=== PATIENT | male | born 1960 | race American Indian/Alaskan Native ===

== ENCOUNTER 2018-07-06 08:13 | Outpatient (CLI) | payer MEDICARE ==
--- NOTE | 2018-07-06 09:34 | Ultrasound Report ---
ULTRASOUND TESTICULAR DOPPLER COMPLETE History: Noninflammatory disorders of testes. Technique: Trans-scrotal ultrasound with spectral doppler interrogation. Findings: The right testicle measures 4.3 x 3.0 x 3.0 cm. The left testicle measures 3.9 x 2.7 x 3.0 cm. No evidence for testicular mass, cyst or calcifications. Symmetric flow on color Doppler. Bilateral epididymal head cysts are identified measuring 6 mm on the right and 9 mm in the left. Large bilateral hydroceles are identified, left slightly larger than right. No evidence for varicocele. Spectral Doppler analysis demonstrates arterial flow to both testes. No evidence for torsion. IMPRESSION: Large bilateral hydroceles. These are simple in appearance with no obvious debris or septation. Bilateral epididymal head cysts.
== END 2018-07-06 08:14 | disposition home or self-care (01) ==
LOC: US 08:13
PROVIDERS: ATTEND Urology
DX: N50.3 Cyst of epididymis (principal); N43.3 Hydrocele, unspecified
CPT/HCPCS: 93975

== ENCOUNTER 2018-08-08 12:10 | Day surgery (SDC) | payer MEDICARE ==
[2018-08-08] MEDS ORDERED: LACTATED RINGERS 1,000 ML IV SCH (13:00)
--- NOTE | 2018-08-08 13:04 | Anesthesia Consultation ---
Anesthesia Consult and Med Hx Date of service: 08/08/18 - Airway Anesthetic Teeth Evaluation: Good ROM Head & Neck: Adequate Mental/Hyoid Distance: Adequate Mallampati Class: Class II Intubation Access Assessment: Good - Pulmonary Exam CTA: Yes - Cardiac Exam Cardiac Exam: RRR - Pre-Operative Health Status ASA Pre-Surgery Classification: ASA2 Proposed Anesthetic Plan: General - Pulmonary Hx Smoking: No Hx Sleep Apnea: No (CINDY PRE SCREEN HIGH RISK.) - Cardiovascular System Hx Hypertension: Yes (X 3 YRS) - Central Nervous System Hx Seizures: Yes (ON DAILY MEDS,LAST ONE SEVERAL YRS AGO) CVA: Yes (2014- AFTER BRAIN SURGERY- NO DEFICITS) - Other Systems Hx Cancer: No
--- NOTE | 2018-08-08 13:05 | Anesthesia Day of Surgery ---
Anesthesia Day of Surgery - Day of Surgery Patient Examined: Yes Patient H&P Reviewed: Yes Patient is NPO: Yes
[2018-08-08] MEDS ORDERED: LACTATED RINGERS 1,000 ML ONE (13:25)
[2018-08-08] MEDS ORDERED: DIPRIVAN 10 MG/ML IV ONE (13:25)
[2018-08-08] MEDS ORDERED: SUBLIMAZE ONE (13:25)
[2018-08-08] MEDS ORDERED: NEO SYNEPHRINE/NS Syringe(OR USE) IV ONE (13:30)
[2018-08-08] MEDS ORDERED: XYLOCAINE CARDIAC IV ONE (13:40)
[2018-08-08] MEDS ORDERED: DECADRON ONE (13:40)
[2018-08-08] MEDS ORDERED: ZOFRAN ONE (13:40)
[2018-08-08] MEDS ORDERED: ANCEF/STERILE WATER 2 GM/20 ML IV NR (14:00)
[2018-08-08] MEDS ORDERED: NACL 0.9% IR ONE (15:00)
--- NOTE | 2018-08-08 15:34 | Short Stay Summary ---
Short Stay Documentation Date of service: 08/08/18 - History H&P: obtained from office - Allergies and Medications Current Medications: Allergies No Known Allergies Allergy (Verified 08/02/18 10:06) Home Medications Medication Instructions Recorded Confirmed Last Taken Type Aspirin 325 mg PO QDAY 08/02/18 08/08/18 07/03/18 09:00 History Irbesartan [Avapro] 75 mg PO DAILY 08/02/18 08/08/18 08/08/18 11:15 History amLODIPine [Norvasc] 10 mg PO DAILY 08/02/18 08/08/18 08/08/18 11:15 History levETIRAcetam [Keppra TAB] 1,000 mg PO BID 08/02/18 08/08/18 08/08/18 11:15 History Active Medications Cefazolin Sodium (Ancef/Sterile Water 2 Gm/20 Ml) 2 gm IV PREOP NR Stop: 08/08/18 23:59 Lactated Ringer's (Lactated Ringers) 1,000 mls @ 75 mls/hr IV DIRECT DAFNE Last Admin: 08/08/18 13:25 Dose: 75 mls/hr Documented by: - Brief post op/procedure progress note Date of procedure: 08/08/18 Pre-op diagnosis: bilat hydrocele Post-op diagnosis: same Procedure: bilat hydrocelectomy & scrotaplasty Anesthesia: SHYLA Surgeon: HERNANDO VILLALOBOS Estimated blood loss: minimal Pathology: list (scrotal skin) Condition: stable - Hospital course Hospital course: norco - Disposition Condition at discharge: Stable Disposition: DC-01 TO HOME OR SELFCARE Short Stay Discharge Plan Follow up with: VIDAL IBARRA MD [Primary Care Provider] - 7 Days
[2018-08-08] MEDS ORDERED: TORADOL ONE (15:41)
[2018-08-08] MEDS ORDERED: DILAUDID ONE (15:42)
--- NOTE | 2018-08-08 16:03 | Post Anesthesia Evaluation ---
- Post Anesthesia Evaluation Patient Participated: Yes Airway Patent: Yes Stable Respiratory Function: Yes Nausea/Vomiting: No Temp > 96.8F: Yes Pain Manageable: Yes Adequeate Hydration: No Block Receding Appropriately: Not Applicable Patient on Ventilator: No
[2018-08-08] MEDS ORDERED: NORCO 5/325 PO PRN (17:52)
[2018-08-08 19:06] VITALS: BP 125/78
--- NOTE | 2018-08-09 20:26 | Operative Report ---
PREOPERATIVE DIAGNOSIS: Bilateral hydroceles. POSTOPERATIVE DIAGNOSIS: Bilateral hydroceles. PROCEDURE: Bilateral hydrocelectomy, scrotoplasty with placement of Napavine drain. SURGEON: Pio Morgan MD ANESTHESIA: General. ESTIMATED BLOOD LOSS: Minimal. FLUIDS: Crystalloid. COMPLICATIONS: No complications. INDICATIONS: This patient is a 58-year-old gentleman seen in the office with a scrotal mass, no trauma. States it has been there for some time. Scrotal ultrasound revealed bilateral hydroceles, flu-like. Discussed the options. He agreed to proceed with surgical intervention. DESCRIPTION OF PROCEDURE: The patient was taken to the operative suite, placed in a supine position. After adequate general anesthesia, he was prepped and draped in a sterile fashion. The scrotal skin was marked in several areas to allow wedge resection for best cosmetic appearance. A transverse incision was made. Sharp dissection was taken down to the tunica vaginalis, which was opened on the left, which was larger than the right. Serosanguineous fluid was evacuated. Healthy testicle could be appreciated. Incision was also made on the right side with similar findings. The hydrocele sac was excised bilaterally. A running whipstitch on the left side using 2-0 chromic in a running fashion was performed and then a similar stitch on the right side using 2-0 chromic. Adequate hemostasis was achieved. Now, I was able to gauge the size of the scrotum and a large segment was excised. A wedge segment was excised and sent for routine pathologic evaluation. Adequate hemostasis was achieved. The Adri drain was brought out through a separate stab incision on the left side tied and the skin with 2-0 chromic in interrupted fashion. Dartos layer was closed using 2-0 chromic in a running fashion. The septum was incorporated into the suture. Skin was closed with 3-0 Vicryl in an interrupted fashion. Dressing was placed. Snug Coban dressing was also placed around the scrotum and base of the penis. The patient tolerated the procedure well and was extubated and taken to recovery room. He will go home on Bactrim and [place] and follow up in the office. JOB# [id number] RINA/NIKOLAI
== END 2018-08-08 17:42 | disposition home or self-care (01) ==
LOC: OR 12:10
PROVIDERS: ATTEND Urology
DX: N43.2 Other hydrocele (principal); I10 Essential (primary) hypertension; Z79.899 Other long term (current) drug therapy; Z79.82 Long term (current) use of aspirin; Z86.718 Personal history of other venous thrombosis and embolism; Z86.73 Personal history of transient ischemic attack (TIA), and cerebral infarction without residual deficits
CPT/HCPCS: 55041; 88302; 88305; J0690; J1100; J1170; J1885; J2001; J2370; J2405; J2704; J3010; J7120; 88304

== ENCOUNTER 2019-04-01 08:43 | Outpatient (CLI) | payer MEDICARE ==
--- NOTE | 2019-04-01 10:24 | Cat Scan Report ---
CT ABDOMEN AND PELVIS WITHOUT CONTRAST INDICATION / CLINICAL INFORMATION: MALIGNANT NEOPLASM OF PROSTATE. TECHNIQUE: Axial CT images were obtained through the abdomen and pelvis without IV contrast. All CT scans at [facility] location are performed using CT dose reduction for ALARA by means of automated exposure control. COMPARISON: None available. FINDINGS: LOWER CHEST: No significant abnormality. Small hiatal hernia is present. LIVER: No significant abnormality. GALLBLADDER: No significant abnormality. BILE DUCTS: No significant abnormality. PANCREAS: No significant abnormality. SPLEEN: No significant abnormality. ADRENALS: No significant abnormality. RIGHT KIDNEY and URETER: Two renal cyst are present measuring 8.0 cm and 5.6 cm. LEFT KIDNEY and URETER: A 3 cm left renal cyst is present. STOMACH and SMALL BOWEL: No significant abnormality. COLON: No significant abnormality. APPENDIX: No significant abnormality. PERITONEUM: No free fluid. No free air. No fluid collection. LYMPH NODES: No significant adenopathy. AORTA and ARTERIES: No significant abnormality. IVC and VEINS: IVC filter in place with apparent occlusion of the inferior vena cava distal to the fi lter. Extensive varices left upper quadrant IV collateral flow. URINARY BLADDER: Thickened urinary bladder wall is present REPRODUCTIVE ORGANS: The prostate is minimally enlarged. Multiple small lymph nodes are present surro unding enlarged seminal vesicles largest lymph node on the left measures 1.7 cm. ADDITIONAL FINDINGS: SKELETAL SYSTEM: Degenerative disease thorax-lumbar spine without evidence of metastatic disease IMPRESSION: 1. Prominence of the prostate gland with some enlargement of seminal vesicles and deep pelvis adenopa thy surrounding the seminal vesicles, consistent with local metastatic prostate carcinoma 2. 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 Large right renal cyst Signer Name: Meño Rubalcava MD Signed: 04/01/2019 10:20 AM Workstation Name: [id number]
--- NOTE | 2019-04-01 13:11 | Nuclear Medicine Report ---
NUCLEAR MEDICINE BONE SCAN, WHOLE BODY INDICATION: Malignant neoplasm of prostate. Additional history: No pain reported by patient. TECHNIQUE: 26.1 mCi of Tc-99m MDP were injected IV. Whole body images were obtained. COMPARISON: No relevant prior imaging study available. FINDINGS: Articular Structures: Uptake along the shoulders, knees and left ankle is consistent with degenerativ e change. Skeletal Lesions: None. Soft Tissues: Normal. Kidneys: Normal. Additional Findings: None. IMPRESSION: No scintigraphic evidence of osseous metastatic disease. Signer Name: Miko Yepez MD Signed: 04/01/2019 1:06 PM Workstation Name: [id number]
== END 2019-04-01 08:44 | disposition home or self-care (01) ==
LOC: NM 08:43
PROVIDERS: ATTEND Urology
DX: C61 Malignant neoplasm of prostate (principal); N40.0 Benign prostatic hyperplasia without lower urinary tract symptoms; R59.0 Localized enlarged lymph nodes
CPT/HCPCS: 74176; 78306; A9503